=== PATIENT | female | born 1990 | race Two or more races ===

== ENCOUNTER 2019-10-25 18:18 | Emergency (ER) | payer OTHER ==
[~2019-10-25] VITALS: Ht 157.5 cm; Wt 95.3 kg
[2019-10-25 20:11] VITALS: BP 129/90
[2019-10-25] MEDS ORDERED: cefTRIAXone SOD 1,000 MG VL IM ONE (20:15)
[2019-10-25] MEDS ORDERED: KETOROLAC TROMETH 60MG/2ML VIAL IM ONE (20:15)
== END 2019-10-25 21:37 | disposition home or self-care (01) ==
LOC: ER 18:18
DX: N39.0 Urinary tract infection, site not specified (principal); R30.0 Dysuria; R35.0 Frequency of micturition; R39.15 Urgency of urination
CPT/HCPCS: 96372; 99284; J0696; J1885